=== PATIENT | male | born 1975 | race Hispanic/Latino ===

== ENCOUNTER → 2024-04-26 | Day surgery (SDC) | payer OTHER ==
[~2024-04-26] MED LIST: IBUPROFEN200 MG PO; OMEPRAZOLE40 MG PO
[2024-04-26] MEDS: LACTATED RINGER'S 1,000 ML ONE (10:54)
[2024-04-26 13:21] VITALS: TEMP 97
[2024-04-26 13:35] VITALS: BP 111/93; PULSE 78; RESP 18; O2SAT 100
== END | disposition home or self-care (01) ==
LOC: OR 09:23
PROVIDERS: ATTEND Internal Medicine Gastroenterology
DX: Z12.11 Encounter for screening for malignant neoplasm of colon (principal); K29.50 Unspecified chronic gastritis without bleeding; K29.80 Duodenitis without bleeding; K52.9 Noninfective gastroenteritis and colitis, unspecified; K31.89 Other diseases of stomach and duodenum; K20.90 Esophagitis, unspecified without bleeding; K21.9 Gastro-esophageal reflux disease without esophagitis; K57.30 Diverticulosis of large intestine without perforation or abscess without bleeding; K64.8 Other hemorrhoids; E66.01 Morbid (severe) obesity due to excess calories; F41.9 Anxiety disorder, unspecified; Z88.0 Allergy status to penicillin; Z01.810 Encounter for preprocedural cardiovascular examination; Z79.1 Long term (current) use of non-steroidal anti-inflammatories (NSAID)
CPT/HCPCS: 43239; 45380; 86140; 93005; J2470; J7121; 45378

== ENCOUNTER → 2024-05-19 | Outpatient (REF) | payer OTHER | LOC: DX 08:15 | PROVIDERS: ATTEND Nurse Practitioner | DX: K63.3 Ulcer of intestine (principal) | CPT/HCPCS: 74250 ==